=== PATIENT | male | born 1985 | race Caucasian/White ===

== ENCOUNTER 2020-04-30 14:01 | Emergency (ER) | payer OTHER ==
[~2020-04-30] VITALS: Ht 180.3 cm; Wt 99.8 kg
== END 2020-04-30 16:39 | disposition home or self-care (01) ==
LOC: ER 14:01
DX: N20.1 Calculus of ureter (principal); Z03.818 Encounter for observation for suspected exposure to other biological agents ruled out; R10.31 Right lower quadrant pain